=== PATIENT | male | born 1975 | race Caucasian/White ===

== ENCOUNTER 2020-07-31 14:38 | Emergency (ER) | payer MEDICAID, OTHER ==
[2020-07-31 15:05] VITALS: BP 139/109; PULSE 109
--- NOTE | 2020-07-31 16:30 | EDM.PDOC ---
ED HPI GENERAL MEDICAL PROBLEM - General Chief Complaint: Skin Complaint Stated Complaint: LEFT CALF SWOLLEN RED Time Seen by Provider: 07/31/20 16:20 Source of Information: Reports: Patient History Limitations: Reports: No Limitations - History of Present Illness INITIAL COMMENTS - FREE TEXT/NARRATIVE: This 45 yo male patient reports to the ED with increased pain and erythema of his left lower extremity. The patient reports he has noticed some redness and swelling in his left lower extremity over the past 3-4 days, but his swelling has been going down at night. This morning the patient noticed that his swelling and redness had continued even after resting throughout the night. Duration: Day(s):, Constant, Getting Worse Location: Reports: Lower Extremity, Left Quality: Reports: Ache, Dull Severity: Moderate Improves with: Reports: None Worsens with: Reports: None Context: Reports: Other Associated Symptoms: Reports: No Other Symptoms Treatments [employer]: Reports: NSAIDS Left Lower Leg Pain Score (Numeric/FACES): 5 - Related Data Allergies Allergy/AdvReac Type Severity Reaction Status Date / Time No Known Allergies Allergy Verified 07/31/20 15:12 Home Meds: Home Meds . [No Known Home Meds] 01/28/14 [History] Past Medical History - Past Health History Medical/Surgical History: Denies Medical/Surgical History Musculoskeletal History: Reports: Other (See Below) Other Musculoskeletal History: left hand surgery [id number] Social & Family History - Family History Family Medical History: No Pertinent Family History - Tobacco Use Tobacco Use Status *Q: Unknown Ever Used Tobacco Second Hand Smoke Exposure: No - Caffeine Use Caffeine Use: Reports: Coffee - Living Situation & Occupation Living situation: Reports: with Family Occupation: Employed ED ROS GENERAL - Review of Systems Review Of Systems: Comprehensive ROS is negative, except as noted in HPI. ED EXAM, SKIN/RASH Exam: See Below Exam Limited By: No Limitations General Appearance: Alert, WD/WN, Mild Distress, Obese Eye Exam: Bilateral Eye: EOMI, Normal Inspection, PERRL Ears: Normal External Exam, Normal Canal, Hearing Grossly Normal, Normal TMs Nose: Normal Inspection, Normal Mucosa, No Blood Throat/Mouth: Normal Inspection, Normal Lips, Normal Teeth, Normal Gums, Normal Oropharynx, Normal Voice, No Airway Compromise Head: Atraumatic, Normocephalic Neck: Normal Inspection, Supple, Non-Tender, Full Range of Motion GI/Abdominal: Normal Bowel Sounds, Soft, Non-Tender, No Organomegaly, No Distention, No Abnormal Bruit, No Mass (Male) Exam: Deferred Rectal (Males) Exam: Deferred Extremities: Leg Pain (left lower leg jane with swelling) Neurological: Alert, Oriented, CN II-XII Intact, Normal Cognition, Normal Gait, Normal Reflexes, No Motor/Sensory Deficits Psychiatric: Normal Affect, Normal Mood Skin: Warm, Dry, Intact, Erythema Location, Skin: Lower Extremity, Left Associated features: Warmth, Tenderness Lymphatic: No Adenopathy Course - Vital Signs Last Recorded V/S: Last Vital Signs Temp 37.4 C 07/31/20 15:04 Pulse 109 H 07/31/20 15:04 Resp 20 07/31/20 15:04 BP 139/109 H 07/31/20 15:04 Pulse Ox - Orders/Labs/Meds Orders: Active Orders 24 hr Category Date Time Status CULTURE BLOOD [BC] Stat Lab 07/31/20 16:28 Received CULTURE BLOOD [BC] Stat Lab 07/31/20 17:30 Received Labs: Laboratory Tests 07/31/20 07/31/20 07/31/20 Range/Units 16:28 16:28 16:28 WBC 25.8 H* (5.0-10.0) 10^3/uL RBC 5.04 (4.6-6.2) 10^6/uL Hgb 14.8 (14.0-18.0) g/dL Hct 43.7 (40.0-54.0) % MCV 86.7 (80-100) fL MCH 29.4 (27.0-34.0) pg MCHC 33.9 (33.0-35.0) g/dL Plt Count 205 (150-450) 10^3/uL Neut % (Auto) 89.3 H (42.2-75.2) % Lymph % (Auto) 4.9 L (20.5-50.1) % [place] % (Auto) 5.6 (2-8) % Eos % (Auto) 0.1 L (1.0-3.0) % Baso % (Auto) 0.1 (0.0-1.0) % D-Dimer, Quantitative 389 (0-400) ng/mL Sodium 131 L (136-145) mmol/L Potassium 3.9 (3.5-5.1) mmol/L Chloride 96 L (98-107) mmol/L Carbon Dioxide 27 (21-32) mmol/L Anion Gap 11.9 (7-13) mEq/L BUN 8 (7-18) mg/dL Creatinine 1.05 (0.70-1.30) mg/dL Est Cr Clr Drug Dosing 92.63 mL/min Estimated GFR (MDRD) > 60 BUN/Creatinine Ratio 7.6 (No establ ref range) Glucose 102 H (74-99) mg/dL Lactic Acid (0.4-2.0) mmol/L Calcium 8.7 (8.5-10.1) mg/dL Total Bilirubin 0.9 (0.2-1.0) mg/dL AST 20 (15-37) U/L ALT 34 (16-63) U/L Alkaline Phosphatase 108 (46-116) U/L Total Protein 8.2 (6.4-8.2) g/dL Albumin 3.2 L (3.4-5.0) g/dL Globulin 5.0 Albumin/Globulin Ratio 0.64 11/20/20 Range/Units 16:28 WBC (5.0-10.0) 10^3/uL RBC (4.6-6.2) 10^6/uL Hgb (14.0-18.0) g/dL Hct (40.0-54.0) % MCV (80-100) fL MCH (27.0-34.0) pg MCHC (33.0-35.0) g/dL Plt Count (150-450) 10^3/uL Neut % (Auto) (42.2-75.2) % Lymph % (Auto) (20.5-50.1) % [place] % (Auto) (2-8) % Eos % (Auto) (1.0-3.0) % Baso % (Auto) (0.0-1.0) % D-Dimer, Quantitative (0-400) ng/mL Sodium (136-145) mmol/L Potassium (3.5-5.1) mmol/L Chloride (98-107) mmol/L Carbon Dioxide (21-32) mmol/L Anion Gap (7-13) mEq/L BUN (7-18) mg/dL Creatinine (0.70-1.30) mg/dL Est Cr Clr Drug Dosing mL/min Estimated GFR (MDRD) BUN/Creatinine Ratio (No establ ref range) Glucose (74-99) mg/dL Lactic Acid 2.2 H* (0.4-2.0) mmol/L Calcium (8.5-10.1) mg/dL Total Bilirubin (0.2-1.0) mg/dL AST (15-37) U/L ALT (16-63) U/L Alkaline Phosphatase (46-116) U/L Total Protein (6.4-8.2) g/dL Albumin (3.4-5.0) g/dL Globulin Albumin/Globulin Ratio Meds: Medications Discontinued Medications Generic Name Dose Route Start Last Admin Trade Name Freq PRN Reason Stop Dose Admin Vancomycin HCl 1.75 gm/ Sodium 500 mls @ 334 mls/hr 07/31/20 17:04 07/31/20 17:38 Chloride IV 07/31/20 18:33 334 mls/hr ONETIME ONE Administration Departure - Departure Time of Disposition: 19:04 Disposition: Home, Self-Care 01 Condition: Fair Clinical Impression: Cellulitis of left lower extremity without foot - Discharge Information *PRESCRIPTION DRUG MONITORING PROGRAM REVIEWED*: Not Applicable *COPY OF PRESCRIPTION DRUG MONITORING REPORT IN PATIENT JEY: Not Applicable Instructions: Cellulitis, Adult, [id number] Forms: ED Department Discharge Care Plan Goals: The patient was advised of the examination and lab results during the visit. The patient was given IV Vancomycin while in the ED. The patient was discharged with scripts for 1) Bactrim DS to take 1 by mouth 2 times per day for 10 days and 2) Keflex (500 mg) #40 to take 1 by mouth 4 times per day for 10 days. The patient should follow-up with his primary care facility next week. If the patient has any additional symptoms or concerns, the patient should either return to the emergency department or visit his primary care facility. Sepsis Event Note (ED) - Evaluation Sepsis Screening Result: No Definite Risk - Focused Exam Vital Signs: Vital Signs Temp Pulse Resp BP 07/31/20 15:04 37.4 C 109 H 20 139/109 H - My Orders Last 24 Hours: My Active Orders 07/31/20 16:28 CULTURE BLOOD [BC] Stat 11/20/20 17:30 CULTURE BLOOD [BC] Stat - Assessment/Plan Last 24 Hours: My Active Orders 07/31/20 16:28 CULTURE BLOOD [BC] Stat 07/31/20 17:30 CULTURE BLOOD [BC] Stat
[2020-07-31] MEDS ORDERED: Vancomycin 1.75 GM in Sodium Chloride 0.9% 500 ML IV ONE (17:04)
[2020-07-31 17:17] LABS: ANION GAP 11.9 mEq/L (7-13); CHLORIDE,CL 96 mmol/L (98-107); SODIUM,NA 131 mmol/L (136-145)
== END 2020-07-31 19:14 | disposition home or self-care (01) ==
LOC: DL.ED 14:38
DX: L03.116 Cellulitis of left lower limb (principal)
CPT/HCPCS: 36415; 80053; 83605; 85025; 85379; 87040; 96365; 99283-25; J3370; J7040

== ENCOUNTER 2024-05-02 21:39 | Emergency (ER) | payer MEDICAID ==
[2024-05-02] MEDS: Lidocaine 1% with EPINEPHrine 1:100,000 20 ML MDV INJECT ONE (22:40)
[2024-05-02] MEDS: Diphtheria,Pertussis(Acell),Tetanus Vaccine 0.5 ML Syringe IM ONE (23:10)
[2024-05-02 23:18] VITALS: BP 170/107; PULSE 87
== END 2024-05-02 23:05 | disposition home or self-care (01) ==
LOC: DL.ED 21:39
DX: S01.83XA Puncture wound without foreign body of other part of head, initial encounter (principal); S01.21XA Laceration without foreign body of nose, initial encounter; Z23 Encounter for immunization; W25.XXXA Contact with sharp glass, initial encounter; Y93.01 Activity, walking, marching and hiking
CPT/HCPCS: 12013; 70150; 90471; 90715; 99283-25; J3490

== ENCOUNTER 2024-08-17 14:52 | Emergency (ER) | payer MEDICAID ==
[2024-08-17 16:11] VITALS: BP 133/73; PULSE 87
[2024-08-17] MEDS: Fluorescein 1 MG Ophth Strip EYELF ONE (16:36)
[2024-08-17] MEDS: Fluorescein 1 MG Ophth Strip ONE (16:36)
[2024-08-17] MEDS: Carboxymethylcellulose Sodium 1% Ophth Gel 0.4 ML UD EYERT PRN (16:41)
[2024-08-17] MEDS ORDERED: Polyvinyl Alcohol 1.4% Ophth Soln 15 ML Bottle EYERT SCH (17:00)
[2024-08-17] MEDS: Polyvinyl Alcohol 1.4% Ophth Soln 15 ML Bottle ONE (17:13)
== END 2024-08-17 17:10 | disposition home or self-care (01) ==
LOC: DL.ED 14:52
DX: H10.32 Unspecified acute conjunctivitis, left eye (principal); H20.9 Unspecified iridocyclitis
CPT/HCPCS: 99283; A9270